=== PATIENT | female | born 1960 | race Two or more races ===

== ENCOUNTER 2017-08-25 03:22 | Emergency (ER) | payer MEDICARE, MEDICAID ==
[2017-08-25 04:55] LABS: ADD MAN DIFF? NO
[2017-08-25 04:57] LABS: BASO % 1 % (0-3); EOS # 0.1 x10^3/uL (0.0-0.7); EOS % 1 % (0-3); HEMATOCRIT 41.7 % (36.0-47.0); HEMOGLOBIN 14.7 g/dL (12.0-15.5); LYMPH # 3.4 x10^3/uL (1.0-4.8); LYMPH % 43 % (24-48); MEAN CORPUSCULAR HEMOGLOBIN 31 pg (25-35); MEAN CORPUSCULAR HGB CONC 35 g/dL (31-37); MEAN CORPUSCULAR VOLUME 87 fL (79-100); MONO # 0.8 x10^3/uL (0.0-1.1); MONO % 11 % (0-9); NEUT # 3.5 x10^3uL (1.8-7.7); NEUT % 45 % (31-73); PLATELET COUNT 185 x10^3/uL (140-400); RED CELL DISTRIBUTION WIDTH 12.7 % (11.5-14.5); WHITE BLOOD COUNT 7.8 x10^3/uL (4.0-11.0)
[2017-08-25] MEDS: IV NORMAL SALINE 1000ML BAG 1,000 ML IV (04:58)
[2017-08-25] MEDS: ONDANSETRON PF 4 MG/2 ML VIAL. IV (04:59)
[2017-08-25] MEDS: fentaNYL PF VIAL 100 MCG/2 ML VIAL IV (05:00)
[2017-08-25 05:37] LABS: ANION GAP 12 (6-14); BLOOD UREA NITROGEN 17 mg/dL (7-20); BUN/CREATININE RATIO 17 (6-20); CALCIUM 9.3 mg/dL (8.5-10.1); CARBON DIOXIDE 26 mmol/L (21-32); CHLORIDE 101 mmol/L (98-107); GFR 57.1; GLUCOSE 110 mg/dL (70-99); POTASSIUM 3.2 mmol/L (3.5-5.1); SODIUM 139 mmol/L (136-145)
[2017-08-25 05:43] LABS: TROPONINI < 0.017 ng/mL (0.000-0.055)
[2017-08-25 05:43] LABS: ALBUMIN 3.9 g/dL (3.4-5.0); ALK PHOS 58 U/L (46-116); ALT (SGPT) 65 U/L (14-59); AST (SGOT) 52 U/L (15-37); LIPASE 104 U/L (73-393); TOTAL BILIRUBIN 1.6 mg/dL (0.2-1.0); TOTAL PROTEIN 7.9 g/dL (6.4-8.2)
[2017-08-25 05:49] LABS: INR 1.1 (0.8-1.1); PARTIAL THROMBOPLASTIN TIME 28 SEC (24-38); PROTHROMBIN TIME PATIENT 14.1 SEC (11.7-14.0)
[2017-08-25 05:51] LABS: NT-PRO BNP 346 pg/mL (0-124)
[2017-08-25] MEDS: IOHEXOL 300 MG/ML 100ML VIAL. IV (06:33)
[2017-08-25] MEDS ORDERED: CONTRAST GIVEN MC (06:45)
[2017-08-25 06:46] LABS: BILIRUBIN,URINE MODERATE (NEG); CLARITY,URINE CLOUDY; COLOR,URINE ORANGE; GLUCOSE,URINE NEGATIVE (NEG); NITRITE,URINE NEGATIVE (NEG); PROTEIN,URINE 100 mg/dL (NEG-TRACE)
[2017-08-25 06:57] LABS: AMORPHOUS SEDIMENT,UR PRESENT /HPF; BACTERIA,URINE 0 /HPF (0-FEW); HYALINE CASTS, URINE FEW /HPF; RBC,URINE 0 /HPF (0-2); SQUAMOUS EPITHELIAL CELL,UR MOD /LPF
[2017-08-25] MEDS: HALOPERIDOL LACTATE 5 MG/ML VIAL. IVP (07:18)
== END 2017-08-25 08:12 | disposition home or self-care (01) ==
LOC: ER 03:22
DX: F12.988 Cannabis use, unspecified with other cannabis-induced disorder (principal); I10 Essential (primary) hypertension; R10.84 Generalized abdominal pain; R19.7 Diarrhea, unspecified; Z88.5 Allergy status to narcotic agent
CPT/HCPCS: 36415; 74177; 80053; 81001; 83690; 83880; 84484; 85025; 85610; 85730; 87086; 93005; 96361; 96374; 96375; 99285-25; J1630; J2405; J3010; J7030; Q9967